=== PATIENT | female | born 1955 | race Caucasian/White ===

== ENCOUNTER → 2018-06-05 | Outpatient (CLI) | payer OTHER ==
[~2018-06-05] MED LIST: ASPI325 PO; CALCIUM; CHOL10002 PO; CIPR500 PO; CRANBERRY; CYAN1000 PO; CYCL10 PO; Cipro500 MG PO; DHEA PO; DOCSEN PO; EVAMIST; EVENING PRIMROSE; Echinacea400 MG PO; Evening Primro1 EACH PO; FERR325 PO; FLUC150A PO; Fergon240 M1 PO; GLIM2 PO; GLUCOSAMINE CH1 EAC3 PO; GLUCOSAMINE/CHONDRO; Glucosamine &1 EACH PO; HYDCHL25 PO; HYDMOR2 PO; HYDR1TAB94 PO; KETO10 PO; LISI20 PO; LISI5; Lomotil Tablet1 EACH PO; MELA3 PO; METF500 PO; METF500C; METF500C PO; MOTRIN; MOVE-FREE; MULVITA PO; OMEGA-3; ONDA4ODT MM; OXYACE5T PO; OXYASA5T PO; OXYC5 PO; POTCHL10ER PO; PROM25 PO; Prilosec Otc20 MG PO; REPA2 PO; ROSU10TA PO; ROSU5; RXHYDMOR2 PO; SIMV20 PO; SIMV40 PO; TAMS.4ER PO; TEMA30 PO; [UNRECOGNIZED DRUG - OTHER]
== END | disposition home or self-care (01) ==
LOC: LAB SHORT 11:46 → LAB EV 11:46
DX: J02.9 Acute pharyngitis, unspecified (principal)
CPT/HCPCS: 87070

== ENCOUNTER → 2019-01-13 | Outpatient (CLI) | payer OTHER ==
[2019-01-18 11:28] LABS: HPV OTHER HR TYPES NEGATIVE
== END | disposition home or self-care (01) ==
LOC: LAB SHORT 17:41 → LAB 17:41
PROVIDERS: Obstetrics & Gynecology Gynecology
DX: Z12.72 Encounter for screening for malignant neoplasm of vagina (principal)
CPT/HCPCS: 87624; G0123

== ENCOUNTER 2020-09-08 09:15 | Observation (INO) | payer OTHER ==
[~2020-09-08] VITALS: Ht 154.9 cm; Wt 113.0 kg
[2020-09-08] MEDS ORDERED: ASPI325 PO (10:31)
[2020-09-08] MEDS ORDERED: VITAMIN D5000 UNIT PO (10:31)
[2020-09-08] MEDS ORDERED: FERROUS GLUCON324 M3 PO (10:32)
[2020-09-08] MEDS ORDERED: DHEA PO (10:32)
[2020-09-08] MEDS ORDERED: AMARYL4 M1 PO (10:32)
[2020-09-08] MEDS ORDERED: INSDET100 SC (10:33)
[2020-09-08] MEDS ORDERED: LISI20 PO (10:33)
[2020-09-08] MEDS ORDERED: MAGNESIUM OXID500 MG PO (10:34)
[2020-09-08] MEDS ORDERED: DIPATR PO (10:34)
[2020-09-08] MEDS ORDERED: OXYC5 PO (10:34)
[2020-09-08] MEDS ORDERED: METF500 PO (10:34)
[2020-09-08] MEDS ORDERED: ZOCOR20 MG PO (10:34)
[2020-09-08] MEDS ORDERED: REPA2 PO (10:34)
[2020-09-08] MEDS ORDERED: TEMA30 PO (10:35)
[2020-09-08 10:39] LABS: BASOPHILS ABSOLUTE AUTO 0.04 K/mm3 (0.00-0.23); BASOPHILS PERCENT AUTO 0 % (0-2); EOSINOPHILS ABSOLUTE AUTO 0.11 K/mm3 (0.00-0.68); EOSINOPHILS PERCENT AUTO 1 % (0-6); Hematocrit 40.7 % (33.0-51.0); Hemoglobin 12.8 g/dL (11.5-16.0); IMMATURE GRAN ABSOLUTE AUTO 0.08 K/mm3 (0.00-0.10); IMMATURE GRAN PERCENT AUTO 1 % (0-1); LYMPHOCYTES ABSOLUTE AUTO 1.16 K/mm3 (0.84-5.20); LYMPHOCYTES PERCENT AUTO 7 % (21-46); MONOCYTES ABSOLUTE AUTO 1.19 K/mm3 (0.16-1.47); MONOCYTES PERCENT AUTO 7 % (4-13); Mean Corpuscular HGB 29.1 pg (26.0-34.0); Mean Corpuscular HGB Conc 31.4 g/dL (31.5-36.5); Mean Corpuscular Volume 93 fL (80-100); Mean Platelet Volume 10.2 fL (9.1-12.4); NEUTROPHILS PERCENT AUTO 85 % (41-73); Platelet Count 357 K/mm3 (150-400); RDW Standard Deviation 47.4 fL (35.1-46.3); White Blood Cell Count 17.68 K/mm3 (4.00-11.30)
[2020-09-08 10:58] LABS: Alanine Aminotransfer (ALT/SGP 24 U/L (12-78); Albumin, Blood 3.5 g/dL (3.4-5.0); Albumin/Globulin Ratio 0.9 (0.8-1.8); Alk Phos 101 U/L (50-136); Anion Gap 7 mmol/L (6-16); Aspartate Aminotrans (AST/SGOT 7 U/L (12-37); Bilirubin, Total 0.5 mg/dL (0.1-1.0); Blood Urea Nitrogen 25 mg/dL (8-24); Bun/Creatinine Ratio 28.2 (12.0-20.0); CO2, Blood 23 mmol/L (21-32); Calcium, Blood 9.8 mg/dL (8.5-10.1); Chloride, Blood 109 mmol/L (98-108); Creatinine, Blood 0.89 mg/dL (0.40-1.00); Globulin, Blood 3.9 g/dL (2.2-4.0); Glomerular Filtration Rate >60 (60-); Glucose, Blood 135 mg/dL (70-99); Potassium, Blood 3.8 mmol/L (3.5-5.5); Sodium, Blood 139 mmol/L (136-145); Total Protein, Blood 7.4 g/dL (6.4-8.2); Troponin I <0.015 ng/mL (0.000-0.040)
--- NOTE | 2020-09-08 17:11 | NUR ---
PATIENT C/O 10/10 CP. VITALS TAKEN. 1 TAB OF NITRO GIVEN PER EMAR
--- NOTE | 2020-09-08 17:16 | NUR ---
C/0 10/10 CP AFTER FIRST DOSE OF NITRO
--- NOTE | 2020-09-08 17:22 | NUR ---
BP 99/52. HOLDING SECOND DOSE OF NITRO
--- NOTE | 2020-09-08 17:23 | NUR ---
PATIENT IS ALERT AND ORIENTED AND COOPERATIVE WITH CARE. CALLS APPROPRIATELY. C/O 10/10 CP. 0 ON THE FACIAL SCALE. MEDICATED ONCE WITH NITRO, NO CHANGE IN LEVEL OF PAIN. AFTER THE NITRO DOSE, HER BP FELL TO 99/51 THEREFORE NO MORE WAS GIVEN. PATIENT IS INDEPENDENT IN HER ROOM. TACHYCARDIC AT 110-[address] MENDOZA AWARE. WILL CONTINUE TO MONITOR
[2020-09-08 19:31] LABS: CPK Creatine Kinase 27 U/L (26-193)
[2020-09-08 19:32] LABS: Creatine Kinase MB <1.0 ng/mL (0.0-3.6); Creatine Kinase MB Index Unable to Calculate (0.0-4.0)
--- NOTE | 2020-09-08 20:35 | NUR ---
I SPOKE TO DR. MILLAN - UPDATED ON NITRO, AND OXYCODONE GIVEN DURING DAY SHIFT, AND TORADOL GIVEN TONIGHT - PT DENIES RELIEF OF CHEST PAIN. I REPORTED PT DENIES ANY JAW PAIN, ANY SOB, AND NAUSEA, OR NUMBNESS OR TINGLING, BUT REPORTS SHOULDER PAIN WITH CHEST PAIN. REVIEWED TROPONIN LEVELS AND TELEMETRY REPORT ON HEART RHYTHM, AND PT APPEARED TO BE SLEEPING WHEN I ENTERED THE ROOM PRIOR TO REPORTED HIGH LEVEL OF CHEST PAIN. DR. MILLAN REPORTED TO CONTINUE TO MONITOR CHEST PAIN.
--- NOTE | 2020-09-08 23:30 | NUR ---
PT APPEARED TO BE SLEEPING UPON ENTERING ROOM, LISTENING TO HER MUSIC. PT AWOKE TO VERBAL COMMUNICATION, REPORTS "SHOULDER PAIN BETTER", BUT CONTINUES WITH CHEST PAIN, BUT SLIGHTLY DECREASED LEVEL OF PAIN 6/10. PT REPORTS CHEST PAIN IS MORE PROMINENT WITH DEEP BREATHING. SHE REPORTS THIS IS THE FIRST TIME SHE HAS "HAD SOME RELIEF OF PAIN." I REPORTED THE TORADOL AN ANTI INFLAMMATORY, ALONG WITH PROVIDING PAIN RELIEF. PT IS NPO FOR AM LABS. CALL LIGHT WITHIN REACH. BED IN LOW POSITION. PT DENIES ANY NEEDS AT THIS TIME.
[2020-09-09 02:43] LABS: BASOPHILS ABSOLUTE AUTO 0.02 K/mm3 (0.00-0.23); BASOPHILS PERCENT AUTO 0 % (0-2); EOSINOPHILS ABSOLUTE AUTO 0.11 K/mm3 (0.00-0.68); EOSINOPHILS PERCENT AUTO 1 % (0-6); Hematocrit 37.2 % (33.0-51.0); Hemoglobin 11.9 g/dL (11.5-16.0); IMMATURE GRAN ABSOLUTE AUTO 0.04 K/mm3 (0.00-0.10); IMMATURE GRAN PERCENT AUTO 0 % (0-1); LYMPHOCYTES ABSOLUTE AUTO 1.33 K/mm3 (0.84-5.20); LYMPHOCYTES PERCENT AUTO 10 % (21-46); MONOCYTES ABSOLUTE AUTO 1.26 K/mm3 (0.16-1.47); MONOCYTES PERCENT AUTO 10 % (4-13); Mean Corpuscular HGB 28.8 pg (26.0-34.0); Mean Corpuscular Volume 90 fL (80-100); Mean Platelet Volume 9.9 fL (9.1-12.4); NEUTROPHILS ABSOLUTE AUTO 10.03 K/mm3 (1.96-9.15); NEUTROPHILS PERCENT AUTO 78 % (41-73); Platelet Count 332 K/mm3 (150-400); RDW Coefficient Variation 13.8 % (11.7-14.2); RDW Standard Deviation 45.8 fL (35.1-46.3); Red Blood Cell Count 4.13 M/mm3 (3.80-5.20); White Blood Cell Count 12.79 K/mm3 (4.00-11.30)
[2020-09-09 03:05] LABS: CPK Creatine Kinase 19 U/L (26-193); Troponin I <0.015 ng/mL (0.000-0.040); Very Low Density Lipoprot Chol 15 mg/dL (6-32)
[2020-09-09 03:06] LABS: Anion Gap 6 mmol/L (6-16); Blood Urea Nitrogen 22 mg/dL (8-24); Bun/Creatinine Ratio 28.7 (12.0-20.0); CHOL/HDL RATIO 2.9; CO2, Blood 25 mmol/L (21-32); Calcium, Blood 9.6 mg/dL (8.5-10.1); Chloride, Blood 105 mmol/L (98-108); Cholesterol 159 mg/dL (50-200); Creatine Kinase MB <1.0 ng/mL (0.0-3.6); Creatine Kinase MB Index Unable to Calculate (0.0-4.0); Creatinine, Blood 0.77 mg/dL (0.40-1.00); Glomerular Filtration Rate >60 (60-); Glucose, Blood 185 mg/dL (70-99); HDL Cholesterol 55 mg/dL (>39); LDL/HDL RATIO 1.6; Low Density Lipoprotein Chol 89 mg/dL (0-110); Potassium, Blood 4.1 mmol/L (3.5-5.5); Sodium, Blood 136 mmol/L (136-145); Triglycerides 77 mg/dL (30-160)
--- NOTE | 2020-09-09 06:11 | NUR ---
SHIFT SUMMARY - PT CONTINUES TO REPORT CHEST DISCOMFORT, WITH SOME RELIEF OF SHOULDER PAIN AFTER TORADOL GIVEN. PT HAS SLEPT FOR APPX 8 HOURS TONIGHT - PT LISTENING TO HER HOME CD, AND REPORTED THIS IS A DISTRACTION FOR HER. CHOLESTEROL PANEL WNL, AND TROPININ LEVEL WNL. SEE PREVIOUS NOTE DISCUSSED WITH DR. YANA SAGASTUME. PT DENIED JAW PAIN, NAUSEA, SOB, OR NUMBNESS AND TINGLING. NO ACUTE CHANGES THROUGHOUT THE NIGHT. FLUIDS AT BEDSIDE. CALL LIGHT WITHIN REACH. BED IN LOW POSITION.
[2020-09-09] MEDS ORDERED: IBU600 M1 PO (10:16)
[2020-09-09] MEDS ORDERED: METO25 PO (10:16)
--- NOTE | 2020-09-09 10:31 | NUR ---
PT DISCHARGE TO HOME. IV DC'D. PT GIVEN DISCHARGE PAPER WITH MED LIST AND EDUCATION ABOUT NEW MEDICATION. MEDS FAXED TO [facility]. PT MEDICATED FOR PAIN BEFORE DISCHARGE DUE TO PLEURITIC CP. PT D-DIMER NEGATIVE AND TROP WNL. NO OTHER CONCERNS
== END 2020-09-09 10:34 | disposition home or self-care (01) ==
LOC: ER 09:15 → MEDS 09:16 → ER 14:43 → MEDS 14:43 → ER 09-09 09:09 → MEDS 09-09 09:17
PROVIDERS: Emergency Medicine; ADMIT Internal Medicine
DX: R07.9 Chest pain, unspecified (principal); D72.829 Elevated white blood cell count, unspecified; D50.9 Iron deficiency anemia, unspecified; E11.9 Type 2 diabetes mellitus without complications; I10 Essential (primary) hypertension; E78.5 Hyperlipidemia, unspecified; G47.00 Insomnia, unspecified; K21.9 Gastro-esophageal reflux disease without esophagitis; E66.01 Morbid (severe) obesity due to excess calories; Z68.42 Body mass index [BMI] 45.0-49.9, adult; Z79.82 Long term (current) use of aspirin; Z79.4 Long term (current) use of insulin; Z88.6 Allergy status to analgesic agent; Z88.1 Allergy status to other antibiotic agents; Z88.5 Allergy status to narcotic agent; Z88.0 Allergy status to penicillin; Z88.7 Allergy status to serum and vaccine; Z88.8 Allergy status to other drugs, medicaments and biological substances; Z96.0 Presence of urogenital implants
CPT/HCPCS: 36415; 71045; 80048; 80053; 80061; 82550; 82553; 82947; 83036; 84484; 85025; 85379; 93005; 93010; 96374; 96375; 96376; 99285-25; A9270; G0378; J1650; J1885; J2405; J3010

== ENCOUNTER 2021-01-17 18:40 | Inpatient (IN) | payer OTHER ==
[~2021-01-17] VITALS: Ht 154.9 cm; Wt 112.7 kg
[~2021-01-17 18:40] MED LIST changes: +AMARYL4 M1 PO; +DIPATR PO; +FERROUS GLUCON324 M3 PO; +IBU600 M1 PO; +LEVEMIR100 UNIT/1 SC; +MAGNESIUM OXID500 MG PO; +METO25 PO; +VITAMIN D5000 UNIT PO; +ZOCOR20 MG PO
[2021-01-17 20:03] LABS: Hematocrit 38.9 % (33.0-51.0); Hemoglobin 12.6 g/dL (11.5-16.0); Mean Corpuscular HGB 29.6 pg (26.0-34.0); Mean Corpuscular HGB Conc 32.4 g/dL (31.5-36.5); Mean Corpuscular Volume 91 fL (80-100); Mean Platelet Volume 9.8 fL (9.1-12.4); Platelet Count 371 K/mm3 (150-400); RDW Coefficient Variation 12.8 % (11.7-14.2); RDW Standard Deviation 42.8 fL (35.1-46.3); Red Blood Cell Count 4.26 M/mm3 (3.80-5.20); White Blood Cell Count 19.54 K/mm3 (4.00-11.30)
[2021-01-17 20:18] LABS: Alanine Aminotransfer (ALT/SGP 26 U/L (12-78); Albumin, Blood 2.7 g/dL (3.4-5.0); Albumin/Globulin Ratio 0.6 (0.8-1.8); Alk Phos 182 U/L (50-136); Anion Gap 14 mmol/L (6-16); Aspartate Aminotrans (AST/SGOT 24 U/L (12-37); Bilirubin, Total 0.5 mg/dL (0.1-1.0); Blood Urea Nitrogen 20 mg/dL (8-24); Bun/Creatinine Ratio 14.9 (12.0-20.0); CO2, Blood 19 mmol/L (21-32); Calcium, Blood 9.4 mg/dL (8.5-10.1); Chloride, Blood 109 mmol/L (98-108); Creatinine, Blood 1.34 mg/dL (0.40-1.00); Globulin, Blood 4.4 g/dL (2.2-4.0); Glomerular Filtration Rate 40 (60-); Glucose, Blood 268 mg/dL (70-99); Potassium, Blood 2.5 mmol/L (3.5-5.5); Sodium, Blood 142 mmol/L (136-145); Total Protein, Blood 7.1 g/dL (6.4-8.2); Troponin I <0.015 ng/mL (0.000-0.040)
[2021-01-17 20:56] LABS: BAND PERCENT MAN 30 % (0-8); BASOPHILS PERCENT MAN 0 % (0-2); EOSINOPHILS PERCENT MAN 0 % (0-6); LYMPHOCYTES ABSOLUTE MAN 0.19 K/mm3 (0.84-5.20); LYMPHOCYTES PERCENT MAN 1 % (21-46); MONOCYTES PERCENT MAN 0 % (4-13); NEUTROPHILS ABSOLUTE MAN 19.34 K/mm3 (1.96-9.15); SEG NEUTROPHILS PERCENT MAN 69 % (41-73); TOTAL CELLS COUNTED 100
[2021-01-17 22:29] LABS: Source, Urine Clean Catch
[2021-01-17 22:32] LABS: Bilirubin, Urine Neg (Neg); Blood, Urine 5+ (Neg); Glucose Qualitative, Urine 3+ (Neg); Ketones, Urine 1+ (Neg); Leukocyte Esterase, Urine 3+ (Neg); Nitrite, Urine Neg (Neg); Protein, Urine 3+ (Neg); Urobilinogen, Urine NORM (Normal)
[2021-01-17 22:39] LABS: International Normalized Ratio 1.14; Prothrombin Time Results 11.9 Sec (9.7-11.5)
[2021-01-17 23:05] LABS: Appearance, Urine Turbid (Clear); Color, Urine Yellow (P-Yellow)
[2021-01-17 23:06] LABS: Red Blood Cells, Urine 50-100 /hpf (0-2); White Blood Cells, Urine TNTC /hpf (0-5)
[2021-01-17 23:07] LABS: Bacteria Many /hpf; Squamous Epithelial Cells Few /hpf (Few); Yeast/Fungi Urine Few /hpf
[2021-01-17 23:33] LABS: U Amphetamine Screen Not Detected; U Barbituate Screen Not Detected; U Benzodiazapine Screen Not Detected; U Buprenorphine Screen Not Detected; U Cannabinoids Screen DETECTED; U Cocaine Screen Not Detected; U Methadone Screen Not Detected; U Methamphetamine Screen Not Detected; U Opiates Screen Not Detected; U Oxycodone Screen DETECTED; U Phencyclidine Screen Not Detected; U Propoxyphene Screen Not Detected
[2021-01-18 02:03] LABS: Hematocrit 31.1 % (33.0-51.0); Hemoglobin 10.2 g/dL (11.5-16.0); Mean Corpuscular HGB 29.6 pg (26.0-34.0); Mean Corpuscular HGB Conc 32.8 g/dL (31.5-36.5); Mean Corpuscular Volume 90 fL (80-100); Mean Platelet Volume 9.8 fL (9.1-12.4); Platelet Count 300 K/mm3 (150-400); RDW Standard Deviation 42.8 fL (35.1-46.3); Red Blood Cell Count 3.45 M/mm3 (3.80-5.20); White Blood Cell Count 27.67 K/mm3 (4.00-11.30)
--- NOTE | 2021-01-18 02:47 | NUR ---
ADMISSION NOTE PT ARRIVED TO PCU APPROX. 2400. VITAL SIGNS STABLE, ON RA. ORDERS FOR SEPSIS FLUID PROTOCAL CLARIFIED BY THIS NURSE WITH DR. LIM. ORDER TO COMPLETE 3500 ML FLUID AND TO DC ADDITIONAL FLUIDS GIVEN, LR BOLUS OF 450ML GIVEN TO COMPLETE ORDERED 3500ML FOR SEPSIS PROTOCAL. PT REPORTED LEFT FLANK PAIN AND WAS MEDICATED PER EMAR. THIS NURSE CALLED DR. PRIEST TO CLARIFY KCL ORDER, STATED TO RUN 1ST BAG AND REASSESS NEED OF CONTINUATION WITH [facility] LAB[facility], KCL NOW INFUSING PER EMAR ORDERS AT 250ML/HR. PT HAS BOTH A RIGHT AC IV AND A IV IN LEFT HAND. IS ABLE TO AMBULATE 1 PERSON SBA TO BEDSIDE COMMODE. PT WAS ORIENTED TO ROOM, UNIT, AND CALL LIGHT, CALL LIGHT IS IN REACH AND PT NOW APPEARS TO BE SLEEPING. WILL CONTINUE TO MONITOR.
[2021-01-18 02:55] LABS: BAND PERCENT MAN 10 % (0-8); BASOPHILS PERCENT MAN 0 % (0-2); EOSINOPHILS PERCENT MAN 0 % (0-6); LYMPHOCYTES ABSOLUTE MAN 0.55 K/mm3 (0.84-5.20); LYMPHOCYTES PERCENT MAN 2 % (21-46); METAMYELOCYTE ABSOLUTE MAN 0.27 K/mm3 (0.00-0.00); METAMYELOCYTE PERCENT MAN 1 % (0-0); MONOCYTES PERCENT MAN 4 % (4-13); NEUTROPHILS ABSOLUTE MAN 25.73 K/mm3 (1.96-9.15); SEG NEUTROPHILS PERCENT MAN 83 % (41-73); TOTAL CELLS COUNTED 100
[2021-01-18 03:22] LABS: Bilirubin, Total 0.3 mg/dL (0.1-1.0); Bun/Creatinine Ratio 13.3 (12.0-20.0); Calcium, Blood 8.4 mg/dL (8.5-10.1); Creatinine, Blood 1.58 mg/dL (0.40-1.00); Potassium, Blood 3.4 mmol/L (3.5-5.5)
[2021-01-18 04:00] LABS: Influenza A, PCR NEGATIVE (NEGATIVE); Influenza B, PCR NEGATIVE (NEGATIVE); Resp Syncytial Virus, PCR NEGATIVE (NEGATIVE); SARS-Cov-2 (COVID-19) PCR, MMC NEGATIVE (NEGATIVE)
[2021-01-18 04:04] LABS: Albumin/Globulin Ratio 0.7 (0.8-1.8); Magnesium, Blood 1.1 mg/dL (1.6-2.4)
--- NOTE | 2021-01-18 04:16 | NUR ---
CRITICAL LAB VALUE NOTE THIS NURSE RECIEVED REPORT FROM NICHOLAS IN LABS AT APPROX. 0400 ABOUT CRITICAL LAB RESULT. THIS NURSE ATTEMPTED TO REACH WITH NO ANSER. WILL CALL BACK TO REPORT RESULTS.
--- NOTE | 2021-01-18 06:22 | NUR ---
SHIFT SUMMARY PT IS ALERT AND ORIENTED X4. VITAL SIGNS ARE STABLE, LAST SBP WAS 107, SPO2 IN 90'S VIA RA, HR SINUS TACH 102 PER TELE REPORT, MAY ON MONITORS. PT HAS A RIGHT AC IV THAT IS NOW INFUSING POTASSIUM CHLORIDE 20MEQ AND MAG SULF PER EMAR ORDERS. THIS NURSE SPOKE WITH DR. PRIEST TO DC KCL 40MEQ ORDER AT 0630. PT IS ABLE TO AMBULATE TO BATHROOM SBA, WALKER UTILIZED. URINE OUTPUT IS ORANGE IN COLOR AND APPEARS CLOUDY. PT DENIES FEELING OF URINARY RETENTION BUT HAS HAD MINIMAL OUTPUT OF 100ML SINCE ADMITTANCE TO PCU. PT HAS DENIED CHEST PAIN/PRESSURE. WHEN PT AMBULATED TO BATHROOM SHE WAS STEADY ON HER FEET BUT BECAME DYSPNIC WITH EXERTION. NO OTHER ACUTE CHANGES NOTED. CALL LIGHT IS IN REACH. WILL CONTINUE TO MONITOR.
[2021-01-18 13:05] LABS: Hematocrit 32.4 % (33.0-51.0); Hemoglobin 10.6 g/dL (11.5-16.0)
[2021-01-18 13:40] LABS: Albumin, Blood 2.1 g/dL (3.4-5.0); Anion Gap 10 mmol/L (6-16); Blood Urea Nitrogen 26 mg/dL (8-24); Bun/Creatinine Ratio 15.7 (12.0-20.0); CO2, Blood 19 mmol/L (21-32); Calcium, Blood 8.7 mg/dL (8.5-10.1); Chloride, Blood 110 mmol/L (98-108); Creatinine, Blood 1.66 mg/dL (0.40-1.00); Glomerular Filtration Rate 31 (60-); Glucose, Blood 276 mg/dL (70-99); Magnesium, Blood 1.6 mg/dL (1.6-2.4); Phosphorus, Blood 2.6 mg/dL (2.5-4.9); Sodium, Blood 139 mmol/L (136-145)
--- NOTE | 2021-01-18 18:25 | NUR ---
PT REMAINS A&OX4. VSS. AFEBRILE. C/O L FLANK PAIN- NORCO X2, ADEQUATE CONTROL OF PAIN PER PT. LOW UO- BLADDER SCAN X1- NO URINARY RETENTION NOTED, MD AWARE. BMX1. TOLERATING CURRENT DIET. MD NOTIFIED OF BC RESULTS- NO NEW ABX ORDERS. FREQUENT ROUNDS TO ENSURE PT SAFETY. PT IN NO APPARENT DISTRESS AT THIS TIME. WILL CONTINUE TO MONITOR UNTIL TRANSFER OF CARE TO ONCOMING RN.
[2021-01-19 04:16] LABS: Hematocrit 30.9 % (33.0-51.0); Hemoglobin 10.1 g/dL (11.5-16.0); Mean Corpuscular HGB 29.2 pg (26.0-34.0); Mean Corpuscular HGB Conc 32.7 g/dL (31.5-36.5); Mean Corpuscular Volume 89 fL (80-100); Mean Platelet Volume 10.2 fL (9.1-12.4); Platelet Count 271 K/mm3 (150-400); RDW Coefficient Variation 13.2 % (11.7-14.2); RDW Standard Deviation 42.9 fL (35.1-46.3); Red Blood Cell Count 3.46 M/mm3 (3.80-5.20); White Blood Cell Count 27.22 K/mm3 (4.00-11.30)
[2021-01-19 04:33] LABS: Bun/Creatinine Ratio 20.3 (12.0-20.0); Calcium, Blood 9.5 mg/dL (8.5-10.1); Creatinine, Blood 1.43 mg/dL (0.40-1.00); Potassium, Blood 4.1 mmol/L (3.5-5.5)
[2021-01-19 04:50] LABS: BAND PERCENT MAN 8 % (0-8); BASOPHILS PERCENT MAN 0 % (0-2); EOSINOPHILS PERCENT MAN 0 % (0-6); LYMPHOCYTES ABSOLUTE MAN 0.27 K/mm3 (0.84-5.20); LYMPHOCYTES PERCENT MAN 1 % (21-46); METAMYELOCYTE ABSOLUTE MAN 0.27 K/mm3 (0.00-0.00); METAMYELOCYTE PERCENT MAN 1 % (0-0); MONOCYTES ABSOLUTE MAN 0.54 K/mm3 (0.16-1.47); MONOCYTES PERCENT MAN 2 % (4-13); NEUTROPHILS ABSOLUTE MAN 26.13 K/mm3 (1.96-9.15); SEG NEUTROPHILS PERCENT MAN 88 % (41-73); TOTAL CELLS COUNTED 100
--- NOTE | 2021-01-19 05:48 | NUR ---
INCREASED URINE OUTPUT THIS SHIFT. LIGHT YELLLOW IN COLOR. NO ODOR NOTED FROM URINE. CONTINUEING ABX. NO CONCERNS THIS SHIFT. .
[2021-01-19 15:18] LABS: Bun/Creatinine Ratio 22.3 (12.0-20.0); Calcium, Blood 9.4 mg/dL (8.5-10.1); Creatinine, Blood 1.21 mg/dL (0.40-1.00); Potassium, Blood 4.4 mmol/L (3.5-5.5)
--- NOTE | 2021-01-19 16:14 | NUR ---
PT A&OX4. VSS. C/O LLQ AND FLANK PAIN- NORCO X1, ADEQUATE CONTROL OF PAIN PER PT. AFEBRILE. AUO- OUTPUT AND COLOR IMPROVING COMPARED TO YESTERDAY. NO BM. TOLERATING CURRENT DIET. IVF INFUSING- CR, BUN IMPROVING. FREQUENT ROUNDS TO ENSURE PT SAFETY. PT IN NO APPARENT DISTRSS AT THIS TIME. WILL CONTINUE TO MONITOR UNTIL TRANSFER OF CARE TO ONCOMING RN.
[2021-01-20 04:30] LABS: Hematocrit 29.3 % (33.0-51.0); Hemoglobin 9.7 g/dL (11.5-16.0); Mean Corpuscular HGB 29.5 pg (26.0-34.0); Mean Corpuscular HGB Conc 33.1 g/dL (31.5-36.5); Mean Corpuscular Volume 89 fL (80-100); Mean Platelet Volume 10.3 fL (9.1-12.4); Platelet Count 278 K/mm3 (150-400); RDW Coefficient Variation 12.9 % (11.7-14.2); RDW Standard Deviation 42.3 fL (35.1-46.3); Red Blood Cell Count 3.29 M/mm3 (3.80-5.20); White Blood Cell Count 18.28 K/mm3 (4.00-11.30)
[2021-01-20 04:52] LABS: Bun/Creatinine Ratio 20.1 (12.0-20.0); Calcium, Blood 9.5 mg/dL (8.5-10.1); Potassium, Blood 4.1 mmol/L (3.5-5.5)
[2021-01-20 05:47] LABS: BAND PERCENT MAN 9 % (0-8); BASOPHILS PERCENT MAN 0 % (0-2); EOSINOPHILS ABSOLUTE MAN 0.36 K/mm3 (0.00-0.68); EOSINOPHILS PERCENT MAN 2 % (0-6); LYMPHOCYTES ABSOLUTE MAN 0.73 K/mm3 (0.84-5.20); LYMPHOCYTES PERCENT MAN 4 % (21-46); MONOCYTES ABSOLUTE MAN 0.54 K/mm3 (0.16-1.47); MONOCYTES PERCENT MAN 3 % (4-13); NEUTROPHILS ABSOLUTE MAN 16.63 K/mm3 (1.96-9.15); SEG NEUTROPHILS PERCENT MAN 82 % (41-73); TOTAL CELLS COUNTED 100
--- NOTE | 2021-01-20 06:14 | NUR ---
NO SIGNIFIGANT EVENTS THIS SHIFT. FREQUENT VOIDING. STRAW YELLOW URINE. LLQ ABDOMINAL PAIN, ADMINISTERED HYDROCODONE. PT REPORTS SOME IMPROVEMENT.
--- NOTE | 2021-01-20 16:44 | NUR ---
PT REMAINS A&OX4. VSS. NO C/O PAIN. AFEBRILE. AUO. BM X1. TOLERATING CURRENT DIET. WORKED WITH PT- SEE EVAL NOTES. TENTATIVE D/C HOME TOMORROW WITH ABX. FREQUENT ROUNDS TO ENSURE PT SAFETY. PT IN NO APPARENT DISTRESS AT THIS TIME. WILL CONTINUE TO MONITOR UNTIL TRANSFER OF CARE TO ONCOMING RN.
[2021-01-21 03:39] LABS: BASOPHILS ABSOLUTE AUTO 0.06 K/mm3 (0.00-0.23); BASOPHILS PERCENT AUTO 1 % (0-2); EOSINOPHILS ABSOLUTE AUTO 0.13 K/mm3 (0.00-0.68); EOSINOPHILS PERCENT AUTO 1 % (0-6); Hematocrit 29.9 % (33.0-51.0); Hemoglobin 10.1 g/dL (11.5-16.0); IMMATURE GRAN ABSOLUTE AUTO 0.15 K/mm3 (0.00-0.10); IMMATURE GRAN PERCENT AUTO 1 % (0-1); LYMPHOCYTES ABSOLUTE AUTO 0.96 K/mm3 (0.84-5.20); LYMPHOCYTES PERCENT AUTO 8 % (21-46); MONOCYTES ABSOLUTE AUTO 0.99 K/mm3 (0.16-1.47); MONOCYTES PERCENT AUTO 8 % (4-13); Mean Corpuscular HGB 29.4 pg (26.0-34.0); Mean Corpuscular HGB Conc 33.8 g/dL (31.5-36.5); Mean Corpuscular Volume 87 fL (80-100); Mean Platelet Volume 10.2 fL (9.1-12.4); NEUTROPHILS ABSOLUTE AUTO 10.15 K/mm3 (1.96-9.15); NEUTROPHILS PERCENT AUTO 82 % (41-73); Platelet Count 262 K/mm3 (150-400); RDW Coefficient Variation 12.9 % (11.7-14.2); RDW Standard Deviation 41.3 fL (35.1-46.3); Red Blood Cell Count 3.43 M/mm3 (3.80-5.20); White Blood Cell Count 12.44 K/mm3 (4.00-11.30)
[2021-01-21 04:01] LABS: Anion Gap 6 mmol/L (6-16); Blood Urea Nitrogen 15 mg/dL (8-24); Bun/Creatinine Ratio 16.9 (12.0-20.0); CO2, Blood 25 mmol/L (21-32); Calcium, Blood 9.5 mg/dL (8.5-10.1); Chloride, Blood 107 mmol/L (98-108); Creatinine, Blood 0.89 mg/dL (0.40-1.00); Glomerular Filtration Rate >60 (60-); Glucose, Blood 194 mg/dL (70-99); Potassium, Blood 3.9 mmol/L (3.5-5.5); Sodium, Blood 138 mmol/L (136-145)
--- NOTE | 2021-01-21 04:13 | NUR ---
PT REPORTING SIGNIFICANT TENSION HEADACHE THIS SHIFT. PT REPORTS THIS HEADACHE HAS BEEN CREEPING ON SINCE ADMISSION. PT REPORTS TYLENOL AND HYDROCODONE HAVE BEEN INEFFECTIVE. PT EXPRESSES SHE USED TO HAVE THESE HEADACHES WHEN UNDER STRESS TAKING CARE OF HER MOTHER. ADMINISTERED RESTRIL WITH MILD RELIEF PER PT REPORTING. PT IS CONTNIUEING TO VOID FREQUENTLY. URINE IS KING COLORED WITH SLIGHTLY HAZY APPEARANCE AND ASLIGHTL;Y ACIDIC ODOR.
[2021-01-21] MEDS ORDERED: LEVO750 PO (10:38)
--- NOTE | 2021-01-21 11:40 | NUR ---
PATIENT CONTACTED NEIGHBOR FOR A RIDE, [place] ON THE WAY, [employer] TRANSPORTED PATIENT TO NEIGHBORS CAR, BY THE ED ENTRANCE AT 1125 VIA WHEELCHAIR, PATIENT DENIES CP, SOB, HAD COMPLETE UNDERSTANDING OF ADM DX AND DISCHARGE INSTRUCTIONS.
== END 2021-01-21 11:36 | disposition home or self-care (01) | DRG 872 ==
LOC: ER 18:40 → PCU 22:49
PROVIDERS: Emergency Medicine; Family Medicine; Hospitalist; Physician Assistant; Student in an Organized Health Care Education/Training Program; ADMIT Internal Medicine
DX: A41.59 Other Gram-negative sepsis (principal); E87.2 Acidosis; N17.9 Acute kidney failure, unspecified; Z68.42 Body mass index [BMI] 45.0-49.9, adult; N12 Tubulo-interstitial nephritis, not specified as acute or chronic; Z20.822 Contact with and (suspected) exposure to COVID-19; R65.20 Severe sepsis without septic shock; E87.6 Hypokalemia; E83.42 Hypomagnesemia; B96.1 Klebsiella pneumoniae [K. pneumoniae] as the cause of diseases classified elsewhere; I25.10 Atherosclerotic heart disease of native coronary artery without angina pectoris; R93.422 Abnormal radiologic findings on diagnostic imaging of left kidney; E66.01 Morbid (severe) obesity due to excess calories; E11.9 Type 2 diabetes mellitus without complications; I10 Essential (primary) hypertension; K21.9 Gastro-esophageal reflux disease without esophagitis; E78.5 Hyperlipidemia, unspecified; M19.90 Unspecified osteoarthritis, unspecified site; Z88.7 Allergy status to serum and vaccine; Z88.0 Allergy status to penicillin; Z88.1 Allergy status to other antibiotic agents; Z88.5 Allergy status to narcotic agent; Z88.8 Allergy status to other drugs, medicaments and biological substances; Z88.6 Allergy status to analgesic agent; Z79.82 Long term (current) use of aspirin; Z79.4 Long term (current) use of insulin; Z79.899 Other long term (current) drug therapy; Z87.442 Personal history of urinary calculi; Z90.89 Acquired absence of other organs; Z90.710 Acquired absence of both cervix and uterus
CPT/HCPCS: 0241U; 36415; 51701; 71045; 74176; 76770; 80048; 80053; 80069; 81001; 82947; 83036; 83605; 83690; 83735; 84100; 84484; 85014; 85018; 85025; 85610; 87040; 87077; 87086; 87186; 93005; 93010; 94762; 96361-59; 96365-59; 96375-59; 97110; 97162; 99285-25; A9270; J0696; J1650; J1815; J1885; J2405; J3475; J3480; J7030; J7120

== ENCOUNTER → 2021-03-23 | Outpatient (CLI) | payer OTHER ==
[~2021-03-23] MED LIST changes: +LEVO750 PO
== END ==
LOC: LAB SHORT 10:39 → LAB 10:39
DX: N39.0 Urinary tract infection, site not specified (principal)
CPT/HCPCS: 87086

== ENCOUNTER → 2021-04-04 | Outpatient (CLI) | payer OTHER ==
[2021-04-04 11:30] LABS: Source, Urine Clean Catch
[2021-04-04 12:26] LABS: Appearance, Urine Cloudy (Clear); Bilirubin, Urine Neg (Neg); Blood, Urine 5+ (Neg); Color, Urine Red (P-Yellow); Glucose Qualitative, Urine Neg (Neg); Ketones, Urine 3+ (Neg); Leukocyte Esterase, Urine 2+ (Neg); Nitrite, Urine Neg (Neg); Protein, Urine 3+ (Neg); Urobilinogen, Urine NORM (Normal)
[2021-04-04 12:49] LABS: Bacteria Many /hpf; Red Blood Cells, Urine TNTC /hpf (0-2); Squamous Epithelial Cells Few /hpf (Few); White Blood Cells, Urine 25-50 /hpf (0-5)
== END ==
LOC: LAB SHORT 11:28 → LAB FUT 04-04 10:50
PROVIDERS: Internal Medicine
DX: N39.0 Urinary tract infection, site not specified (principal); R31.9 Hematuria, unspecified
CPT/HCPCS: 81001

== ENCOUNTER → 2022-05-13 | Outpatient (CLI) | payer MEDICARE, OTHER | END | disposition home or self-care (01) | LOC: LAB SHORT 07:20 → LAB 07:20 | PROVIDERS: Internal Medicine Endocrinology, Diabetes & Metabolism | DX: R61 Generalized hyperhidrosis (principal) | CPT/HCPCS: 81050; 82570 ==

== ENCOUNTER → 2023-01-03 | Outpatient (CLI) | payer MEDICARE, OTHER | LOC: LAB 10:53 → LAB SHORT 10:53 | DX: R30.0 Dysuria (principal) | CPT/HCPCS: 87077; 87086; 87186 ==

== ENCOUNTER → 2024-08-19 | Outpatient (CLI) | payer MEDICARE, OTHER ==
[2024-08-19 06:23] LABS: Source, Urine Clean Catch
[2024-08-19 08:11] LABS: Bilirubin, Urine Neg (Neg); Color, Urine Yellow (P-Yellow); Glucose Qualitative, Urine Neg (Neg); Ketones, Urine Neg (Neg); Leukocyte Esterase, Urine 2+ (Neg); Protein, Urine 3+ (Neg); Specific Gravity, Urine 1.010 (1.003-1.022); Urobilinogen, Urine NORM (Normal)
[2024-08-19 08:45] LABS: C-REACTIVE PROTEIN, EXT RANGE 1.37 mg/dL (0.000-0.300); Ferritin, Serum 11.0 ng/mL (8-252)
[2024-08-21 11:30] LABS: ANTINUCLEAR AB (ANA),HEP-2,IGG <1:80 (<1:80)
[2024-08-21 11:57] LABS: MYELOPEROXIDASE (MPO) AB,IGG 0 AU/mL (0-19); SERINE PROTEINASE 3 PR3 AB,IGG 0 AU/mL (0-19)
[2024-08-21 15:14] LABS: HBV CORE ANTIBODIES,TOTAL Negative (Negative)
[2024-08-21 19:25] LABS: COMPLEMENT COMPONENT 3 173 mg/dL (90-180); COMPLEMENT COMPONENT 4 19 mg/dL (10-40)
[2024-08-21 19:27] LABS: HEPATITIS C AB CIA INTERP Negative (Negative); HEPATITIS C ANTIBODY CIA INDEX 0.09 IV
[2024-08-22 10:39] LABS: ALPHA 1 GLOBULIN 0.37 g/dL (0.19-0.46); ALPHA 2 GLOBULIN 1.12 g/dL (0.48-1.05); BETA GLOBULIN 0.76 g/dL (0.48-1.10); GAMMA 0.41 g/dL (0.62-1.51)
[2024-08-22 20:38] LABS: QUANTIFERON MITOGEN MINUS NIL 9.95 IU/mL; QUANTIFERON NIL 0.05 IU/mL; QUANTIFERON PLUS TB1 MINUS NIL 0.01 IU/mL (<=0.34); QUANTIFERON PLUS TB2 MINUS NIL 0.01 IU/mL (<=0.34)
== END | disposition home or self-care (01) ==
LOC: LAB 06:15 → LAB SHORT 06:15 → LAB FUT 04-08 08:20
PROVIDERS: Internal Medicine Rheumatology
DX: M31.6 Other giant cell arteritis (principal); R70.0 Elevated erythrocyte sedimentation rate; R79.82 Elevated C-reactive protein (CRP); Z79.899 Other long term (current) drug therapy
CPT/HCPCS: 36415; 81001; 82728; 83516; 84155; 84165; 85651; 86039; 86140; 86160; 86430; 86480; 86704; 86803; 87086; 87340

== ENCOUNTER → 2024-11-22 | Outpatient (CLI) | payer MEDICARE, OTHER ==
[2024-11-22 21:25] LABS: Campylobacter Sp Not Detected (NOT DETECT)
[2024-11-22 21:26] LABS: E. Coli O157 Not Detected (NOT DETECT); Enteroaggregative E. coli-EAEC Not Detected (NOT DETECT); Enteropathogenic E. coli-EPEC Detected (NOT DETECT); Enterotoxigenic E. coli-ETEC Not Detected (NOT DETECT); Salmonella Sp Not Detected (NOT DETECT); Shiga Toxin-prod E. coli-STEC Not Detected (NOT DETECT); Shigella/Enteroin E. coli-EIEC Not Detected (NOT DETECT); Vibrio Sp Not Detected (NOT DETECT)
== END ==
LOC: LAB 13:15 → LAB SHORT 13:15 → LAB FUT 11-17 17:10
PROVIDERS: Internal Medicine
DX: R19.7 Diarrhea, unspecified (principal)
CPT/HCPCS: 87507